=== PATIENT | female | born 1950 | race African-American/Black ===

== ENCOUNTER 2018-01-03 09:30 | Day surgery (SDC) | payer OTHER, MEDICARE ==
[2017-12-21 13:19] VITALS: BMI 29.0
--- NOTE | 2018-01-03 11:15 | HP ---
History & Physical Update - History History: No Change - Physical Physical: No Change - Assessment Assessment: No Change
[2018-01-03] MEDS ORDERED: ONDANSETRON 4 MG/2 ML VIAL IVPUSH PRN ×2 (11:32→13:24)
[2018-01-03] MEDS ORDERED: oxyCODONE HCL 5 MG TABLET PO PRN ×2 (11:32→13:24)
[2018-01-03] MEDS ORDERED: ACETAMINOPHEN 1000 MG/100 ML VIAL (NON FORMULARY) IVPB PRN (11:33)
[2018-01-03] MEDS ORDERED: LACTATED RINGERS SOLUTION 1,000 ML IV SCH (11:45)
[2018-01-03] MEDS ORDERED: IBUPROFEN 600 MG TABLET (FP) PO PRN (13:24)
[2018-01-03] MEDS ORDERED: IBUPROFEN 800 MG/8 ML IJ IVPB PRN (13:24)
[2018-01-03] MEDS ORDERED: ELECTROLYTE-148 SOLN 1,000 ML IV SCH (13:30)
[2018-01-03 14:59] VITALS: BP 139/73; PULSE 49; TEMP 97.6
--- NOTE | 2018-01-04 11:49 | PATH ---
Surgical Pathology Report Patient Name: AURELIO ISAACS [facility]. Rec. #: [id number] /Age/Gender: 1950 (Age: 67) / F Account: [id number] Location: [facility] SUR[facility]ICAL Taken: 01/03/2018 Received: 01/03/2018 Reported: 01/04/2018 Physicians: Silas Rothman M.D. Specimen(s) Received FIBROID, POLYP AND ENDOMETRIAL CURETTING Clinical History Postmenopausal bleeding Final Diagnosis FIBROID, POLYP, ENDOMETRIAL CURETTINGS, HYSTEROSCOPIC RESECTION OF FIBROID, POLYPECTOMY, DILATION AND CURETTAGE: FRAGMENTS OF ENDOMETRIAL POLYP, BUNDLES OF SMOOTH MUSCLE CONSISTENT WITH LEIOMYOMA, AND BENIGN CERVICAL TISSUE ADMIXED WITH MUCUS. Electronically Signed Kelsey Pugh M.D. Gross Description Received in formalin labeled "fibroid, polyp and endometrial curettings," is a 2.1 x 1.7 x 0.3 cm aggregate of ruano soft tissue fragments admixed with mucus. The specimen is entirely submitted in 2 cassettes. /01/03/2018 saudi01/03/2018
--- NOTE | 2018-01-29 14:57 | OP ---
DATE OF OPERATION: 01/03/2018 PREOPERATIVE DIAGNOSES: Menometrorrhagia, endometrial polyp. POSTOPERATIVE DIAGNOSES: Menometrorrhagia, endometrial polyp. PROCEDURE: Hysteroscopy, dilation and curettage, and polypectomy. SURGEON: Silas Rothman MD ANESTHESIA: General. ESTIMATED BLOOD LOSS: 20 mL. OPERATION: The patient was taken to the operating room and underwent adequate general anesthesia in dorsal lithotomy position. Examination under anesthesia revealed external genitalia to be normal. Vagina was normal. Cervix was clean. No gross lesions. Uterus was slightly prominent and adnexa, no masses were palpable. Then, with the weighted speculum in the vagina, the anterior lip of the cervix was grasped with a single-toothed tenaculum. The cervix was slightly dilated with Hegar dilators. The uterine cavity was sounded to 9 cm. Then, the hysteroscope was introduced. Visualization of the endocervical canal appeared to be normal. Endometrium was slightly irregular with an endometrial polyp noted at the fundal area. Then, the cervix was slightly more dilated, then the hysteroscope was introduced, and the endometrial polyp was removed and resected and then the endometrium was curetted. The patient tolerated the procedure well, left the OR in good condition. Tito [id number]
== END 2018-01-03 15:10 | disposition home or self-care (01) ==
LOC: JASU-SURG 09:30
PROVIDERS: ATTEND Obstetrics & Gynecology
PROC: 0UJD8ZZ Inspection of Uterus and Cervix, Via Natural or Artificial Opening Endoscopic (ICD-10-PCS; 2018-01-03)
PROC: 0UB97ZX Excision of Uterus, Via Natural or Artificial Opening, Diagnostic (ICD-10-PCS; principal; 2018-01-03 11:00)
PROC: 0UDB7ZX Extraction of Endometrium, Via Natural or Artificial Opening, Diagnostic (ICD-10-PCS; 2018-01-03 11:00)
DX: N92.1 Excessive and frequent menstruation with irregular cycle (principal); N84.0 Polyp of corpus uteri
CPT/HCPCS: 88305-TC; 94760

== ENCOUNTER 2020-05-08 11:17 | Inpatient (IN) | payer OTHER, MEDICARE ==
[2020-05-08] MEDS ORDERED: ACETAMINOPHEN 500 MG TABLET (FP) PO ONE (12:08)
[2020-05-08] MEDS ORDERED: SODIUM CHLORIDE 1,000 ML IV STA (12:14)
[2020-05-08] MEDS ORDERED: ACETAMINOPHEN 325 MG TABLET (FP) ONE (12:15)
[2020-05-08 12:41] LABS: BASO % 0.3 % (0-2.0); HEMATOCRIT 41.1 % (32.4-45.2); MCH 28.7 pg (25.7-33.7); MCHC 34.1 g/dl (32.0-36.0); MEAN CELL VOLUME 84.2 fl (80-96); MEAN PLT VOLUME 9.3 fl (7.5-11.1); MONO % 6.6 % (3.8-10.2); NEUT % 73.1 % (42.8-82.8); PLATELET COUNT 140 K/MM3 (134-434); RBC 4.88 M/mm3 (3.60-5.2); RDW 14.5 % (11.6-15.6); WHITE BLOOD COUNT 6.2 K/mm3 (4.0-10.0)
[2020-05-08 12:48] LABS: INR 1.11 (0.83-1.09); PROTHROMBIN TIME (PATIENT) 13.6 SEC (9.7-13.0)
[2020-05-08 12:50] LABS: ACTIVATED PTT 31.5 SECONDS (25.2-36.5)
[2020-05-08 12:58] LABS: CHLORIDE 92 mmol/L (98-107); POTASSIUM 3.9 mmol/L (3.5-5.1); SODIUM 128 mmol/L (136-145)
[2020-05-08 13:02] LABS: ALBUMIN 3.7 g/dl (3.4-5.0); ANION GAP 13 MMOL/L (8-16); BLOOD UREA NITROGEN 38.1 mg/dL (7-18); CALCIUM 8.7 mg/dL (8.5-10.1); CO2 22 mmol/L (21-32); GLUCOSE,RANDOM 148 mg/dL (74-106)
[2020-05-08 13:03] LABS: BILIRUBIN,DIRECT 0.2 mg/dL (0.0-0.2); SGPT/ALT 25 U/L (13-61)
[2020-05-08 13:05] LABS: CREATININE 2.3 mg/dL (0.55-1.3); SGOT/AST 74 U/L (15-37)
[2020-05-08 13:06] LABS: BILIRUBIN,TOTAL 0.5 mg/dL (0.2-1); LDH 400 U/L (84-246); TOT PROT 8.6 g/dl (6.4-8.2)
[2020-05-08 13:07] LABS: ALK PHOS 71 U/L (45-117)
[2020-05-08 13:10] LABS: N-TERMINAL BNP 141.6 pg/ml (5-125)
[2020-05-08] MEDS ORDERED: DEXAMETHASONE SOD PHOSPHATE 4 MG/1 ML VIAL IVPUSH ONE (14:21)
[2020-05-08] MEDS ORDERED: SODIUM CHLORIDE 1,000 ML IV SCH (15:00)
[2020-05-08] MEDS ORDERED: ALBUTEROL SO4 HFA INHALER IH PRN (15:20)
[2020-05-08] MEDS ORDERED: DEXAMETHASONE SOD PHOSPHATE 10 MG/1 ML VIAL ONE (15:33)
[2020-05-08] MEDS ORDERED: ATORVASTATIN CA 10 MG TABLET (FP) ONE (22:28)
[2020-05-08] MEDS ORDERED: HEPARIN NA (PORCINE) 5,000 UNITS/ML 1ML VIAL ONE (22:29)
[2020-05-08] MEDS: HEPARIN NA (PORCINE) 5,000 UNITS/ML 1ML VIAL SQ SCH (22:40)
[2020-05-08] MEDS: ATORVASTATIN CA 10 MG TABLET (FP) PO SCH (22:41)
[2020-05-09 00:58] LABS: URINE APPEARANCE Clear; URINE BILIRUBIN Negative (NEGATIVE); URINE COLOR Yellow; URINE GLUCOSE (UA) Negative (NEGATIVE); URINE KETONE Negative (NEGATIVE); URINE LEUK ESTERASE Negative (NEGATIVE); URINE NITRITE Negative (NEGATIVE); URINE PROTEIN 2+ (NEGATIVE); URINE UROBILINOGEN 0.2 mg/dL (0.2-1.0)
[2020-05-09] MEDS ORDERED: HEPARIN NA (PORCINE) 5,000 UNITS/ML 1ML VIAL ONE ×2 (06:13→14:01)
[2020-05-09] MEDS: HEPARIN NA (PORCINE) 5,000 UNITS/ML 1ML VIAL SQ SCH ×3 (06:23→21:24)
[2020-05-09 07:28] LABS: HEMATOCRIT 37.2 % (32.4-45.2); HEMOGLOBIN 12.9 GM/dL (10.7-15.3); MCH 29.3 pg (25.7-33.7); MCHC 34.8 g/dl (32.0-36.0); MEAN PLT VOLUME 9.3 fl (7.5-11.1); PLATELET COUNT 139 K/MM3 (134-434); RBC 4.42 M/mm3 (3.60-5.2); RDW 14.6 % (11.6-15.6)
[2020-05-09 07:40] LABS: POTASSIUM 3.7 mmol/L (3.5-5.1)
[2020-05-09 07:43] LABS: ALBUMIN 3.2 g/dl (3.4-5.0); CALCIUM 8.4 mg/dL (8.5-10.1)
[2020-05-09 07:44] LABS: BLOOD UREA NITROGEN 40.6 mg/dL (7-18)
[2020-05-09 07:47] LABS: BILIRUBIN,TOTAL 0.4 mg/dL (0.2-1); CREATININE 1.6 mg/dL (0.55-1.3); PHOSPHOROUS 3.8 mg/dL (2.5-4.9)
[2020-05-09] MEDS: SODIUM CHLORIDE 1,000 ML IV SCH (14:00)
[2020-05-09] MEDS: PANTOPRAZOLE SODIUM 40 MG VIAL IVPUSH SCH (16:10)
[2020-05-09] MEDS: DEXAMETHASONE SOD PHOSPHATE 10 MG/1 ML VIAL IVPUSH SCH (16:15)
[2020-05-09] MEDS ORDERED: PANTOPRAZOLE SODIUM 40 MG VIAL ONE (16:16)
[2020-05-09] MEDS ORDERED: DEXAMETHASONE SOD PHOSPHATE 10 MG/1 ML VIAL ONE (16:16)
[2020-05-09 20:11] LABS: HEMATOCRIT 38.9 % (32.4-45.2); HEMOGLOBIN 13.1 GM/dL (10.7-15.3); MCH 28.7 pg (25.7-33.7); MCHC 33.8 g/dl (32.0-36.0); MEAN CELL VOLUME 84.9 fl (80-96); MEAN PLT VOLUME 9.4 fl (7.5-11.1); PLATELET COUNT 158 K/MM3 (134-434); RBC 4.58 M/mm3 (3.60-5.2); RDW 14.5 % (11.6-15.6); WHITE BLOOD COUNT 8.8 K/mm3 (4.0-10.0)
[2020-05-09] MEDS: ATORVASTATIN CA 10 MG TABLET (FP) PO SCH (21:24)
[2020-05-09 22:46] VITALS: BMI 29.1
[2020-05-10] MEDS: HEPARIN NA (PORCINE) 5,000 UNITS/ML 1ML VIAL SQ SCH ×3 (06:08→21:34)
[2020-05-10 07:18] LABS: BASO % 0.2 % (0-2.0); HEMATOCRIT 38.7 % (32.4-45.2); HEMOGLOBIN 13.2 GM/dL (10.7-15.3); LYMPH % 18.7 % (8-40); MCH 28.9 pg (25.7-33.7); MEAN CELL VOLUME 84.9 fl (80-96); MEAN PLT VOLUME 9.6 fl (7.5-11.1); MONO % 6.7 % (3.8-10.2); NEUT % 74.4 % (42.8-82.8); PLATELET COUNT 153 K/MM3 (134-434); RBC 4.56 M/mm3 (3.60-5.2); RDW 14.2 % (11.6-15.6); WHITE BLOOD COUNT 9.6 K/mm3 (4.0-10.0)
[2020-05-10 08:11] LABS: MAGNESIUM 2.1 mg/dL (1.8-2.4)
[2020-05-10 08:14] LABS: PHOSPHOROUS 3.9 mg/dL (2.5-4.9)
[2020-05-10] MEDS ORDERED: PT OWN MED DRAWER 7, Y5N ONE (09:19)
[2020-05-10] MEDS: DEXAMETHASONE SOD PHOSPHATE 10 MG/1 ML VIAL IVPUSH SCH (09:21)
[2020-05-10] MEDS: PANTOPRAZOLE SODIUM 40 MG VIAL IVPUSH SCH (09:21)
[2020-05-10] MEDS: ASCORBIC ACID 500 MG TABLET (FP) PO SCH ×2 (09:22→21:34)
[2020-05-10] MEDS: CHOLECALCIFEROL (VIT D3) 1,000 UNIT (25 MCG) TABLET PO SCH (09:22)
[2020-05-10 09:51] LABS: ALBUMIN 3.2 g/dl (3.4-5.0)
[2020-05-10 09:59] LABS: CALCIUM 8.9 mg/dL (8.5-10.1)
[2020-05-10 10:00] LABS: BLOOD UREA NITROGEN 35.5 mg/dL (7-18)
[2020-05-10] MEDS ORDERED: ZINC SULFATE 220 MG TABLET PO SCH (10:00)
[2020-05-10] MEDS ORDERED: REMDESIVIR 200 MG in SODIUM CHLORIDE 210 ML IVPB ONE (10:00)
[2020-05-10 10:04] LABS: BILIRUBIN,TOTAL 0.5 mg/dL (0.2-1); CREATININE 1.3 mg/dL (0.55-1.3); TOT PROT 7.9 g/dl (6.4-8.2)
[2020-05-10] MEDS: SODIUM CHLORIDE 1,000 ML IV SCH (13:08)
[2020-05-10] MEDS: FAMOTIDINE 20 MG/50 ML IVPB 20 MG/50 ML MG IVPB SCH (21:34)
[2020-05-10] MEDS: ZINC SULFATE 220 MG CAPSULE (FP) PO SCH (21:34)
[2020-05-10] MEDS: ATORVASTATIN CA 10 MG TABLET (FP) PO SCH (21:34)
[2020-05-11] MEDS: HEPARIN NA (PORCINE) 5,000 UNITS/ML 1ML VIAL SQ SCH ×3 (06:43→21:05)
[2020-05-11 07:27] LABS: BASO % 0.2 % (0-2.0); HEMATOCRIT 38.3 % (32.4-45.2); LYMPH % 16.3 % (8-40); MCH 29.1 pg (25.7-33.7); MEAN CELL VOLUME 85.5 fl (80-96); MEAN PLT VOLUME 9.7 fl (7.5-11.1); MONO % 4.1 % (3.8-10.2); NEUT % 79.4 % (42.8-82.8); PLATELET COUNT 185 K/MM3 (134-434); RBC 4.48 M/mm3 (3.60-5.2); RDW 14.7 % (11.6-15.6); WHITE BLOOD COUNT 14.1 K/mm3 (4.0-10.0)
[2020-05-11 07:29] LABS: POTASSIUM 3.8 mmol/L (3.5-5.1)
[2020-05-11 07:32] LABS: CALCIUM 8.4 mg/dL (8.5-10.1)
[2020-05-11 07:33] LABS: BLOOD UREA NITROGEN 28.2 mg/dL (7-18); MAGNESIUM 1.8 mg/dL (1.8-2.4)
[2020-05-11 07:36] LABS: CREATININE 1.2 mg/dL (0.55-1.3)
[2020-05-11 07:38] LABS: BILIRUBIN,TOTAL 0.5 mg/dL (0.2-1); TOT PROT 7.8 g/dl (6.4-8.2)
[2020-05-11 08:55] LABS: ANISOCYTOSIS 1+; PLATELET ESTIMATE NORMAL
[2020-05-11] MEDS: CHOLECALCIFEROL (VIT D3) 1,000 UNIT (25 MCG) TABLET PO SCH (09:22)
[2020-05-11] MEDS: ZINC SULFATE 220 MG CAPSULE (FP) PO SCH ×2 (09:22→21:05)
[2020-05-11] MEDS: FAMOTIDINE 20 MG/50 ML IVPB 20 MG/50 ML MG IVPB SCH ×2 (09:22→21:05)
[2020-05-11] MEDS: ASCORBIC ACID 500 MG TABLET (FP) PO SCH ×2 (09:22→21:05)
[2020-05-11] MEDS: DEXAMETHASONE SOD PHOSPHATE 10 MG/1 ML VIAL IVPUSH SCH (09:23)
[2020-05-11] MEDS: REMDESIVIR 100 MG in SODIUM CHLORIDE 230 ML IVPB SCH (10:01)
[2020-05-11] MEDS ORDERED: PT OWN MED DRAWER 7, Y5N ONE (11:41)
[2020-05-11] MEDS: SODIUM CHLORIDE 1,000 ML IV SCH (13:47)
[2020-05-11] MEDS: ATORVASTATIN CA 10 MG TABLET (FP) PO SCH (21:05)
[2020-05-12] MEDS: SODIUM CHLORIDE 1,000 ML IV SCH ×2 (03:45→13:15)
[2020-05-12] MEDS: HEPARIN NA (PORCINE) 5,000 UNITS/ML 1ML VIAL SQ SCH ×3 (05:38→22:22)
[2020-05-12 08:12] LABS: POTASSIUM 3.7 mmol/L (3.5-5.1)
[2020-05-12 08:17] LABS: ALBUMIN 2.9 g/dl (3.4-5.0); BASO % 0.2 % (0-2.0); CALCIUM 8.5 mg/dL (8.5-10.1); HEMATOCRIT 38.8 % (32.4-45.2); MCH 28.9 pg (25.7-33.7); MCHC 33.7 g/dl (32.0-36.0); MEAN CELL VOLUME 85.9 fl (80-96); MEAN PLT VOLUME 9.3 fl (7.5-11.1); MONO % 4.9 % (3.8-10.2); NEUT % 76.9 % (42.8-82.8); PLATELET COUNT 229 K/MM3 (134-434); RBC 4.51 M/mm3 (3.60-5.2); RDW 14.8 % (11.6-15.6); WHITE BLOOD COUNT 11.4 K/mm3 (4.0-10.0)
[2020-05-12 08:18] LABS: BLOOD UREA NITROGEN 29.4 mg/dL (7-18); MAGNESIUM 1.8 mg/dL (1.8-2.4)
[2020-05-12 08:20] LABS: BILIRUBIN,TOTAL 0.6 mg/dL (0.2-1)
[2020-05-12 08:21] LABS: CREATININE 1.1 mg/dL (0.55-1.3); TOT PROT 7.5 g/dl (6.4-8.2)
[2020-05-12] MEDS ORDERED: PT OWN MED DRAWER 7, Y5N ONE (08:31)
[2020-05-12] MEDS: DEXAMETHASONE SOD PHOSPHATE 10 MG/1 ML VIAL IVPUSH SCH (09:51)
[2020-05-12] MEDS: ZINC SULFATE 220 MG CAPSULE (FP) PO SCH ×2 (09:51→22:23)
[2020-05-12] MEDS: CHOLECALCIFEROL (VIT D3) 1,000 UNIT (25 MCG) TABLET PO SCH (09:51)
[2020-05-12] MEDS: FAMOTIDINE 20 MG/50 ML IVPB 20 MG/50 ML MG IVPB SCH ×2 (09:52→22:22)
[2020-05-12] MEDS: ASCORBIC ACID 500 MG TABLET (FP) PO SCH ×2 (09:52→22:23)
[2020-05-12] MEDS: REMDESIVIR 100 MG in SODIUM CHLORIDE 230 ML IVPB SCH (10:36)
[2020-05-12 12:56] LABS: ANISOCYTOSIS 0; MACROCYTOSIS 0; PLATELET ESTIMATE NORMAL
[2020-05-12] MEDS: amLODIPine BESYLATE 5 MG TABLET (FP) PO SCH (17:20)
[2020-05-12] MEDS: ATORVASTATIN CA 10 MG TABLET (FP) PO SCH (22:23)
[2020-05-13] MEDS: HEPARIN NA (PORCINE) 5,000 UNITS/ML 1ML VIAL SQ SCH (06:15)
[2020-05-13 07:57] LABS: BASO % 0.3 % (0-2.0); HEMATOCRIT 38.9 % (32.4-45.2); HEMOGLOBIN 13.3 GM/dL (10.7-15.3); LYMPH % 25.1 % (8-40); MCH 29.1 pg (25.7-33.7); MCHC 34.2 g/dl (32.0-36.0); MEAN CELL VOLUME 85.1 fl (80-96); MEAN PLT VOLUME 8.9 fl (7.5-11.1); MONO % 6.2 % (3.8-10.2); NEUT % 68.4 % (42.8-82.8); PLATELET COUNT 285 K/MM3 (134-434); RBC 4.57 M/mm3 (3.60-5.2); RDW 14.5 % (11.6-15.6); WHITE BLOOD COUNT 10.2 K/mm3 (4.0-10.0)
[2020-05-13 08:13] LABS: POTASSIUM 3.9 mmol/L (3.5-5.1)
[2020-05-13 08:43] LABS: CALCIUM 8.2 mg/dL (8.5-10.1)
[2020-05-13 08:44] LABS: ALBUMIN 2.7 g/dl (3.4-5.0); BLOOD UREA NITROGEN 23.7 mg/dL (7-18); MAGNESIUM 1.7 mg/dL (1.8-2.4)
[2020-05-13 08:49] LABS: BILIRUBIN,TOTAL 0.6 mg/dL (0.2-1); TOT PROT 7.1 g/dl (6.4-8.2)
[2020-05-13] MEDS: amLODIPine BESYLATE 5 MG TABLET (FP) PO SCH (09:20)
[2020-05-13] MEDS: CHOLECALCIFEROL (VIT D3) 1,000 UNIT (25 MCG) TABLET PO SCH (09:20)
[2020-05-13] MEDS: FAMOTIDINE 20 MG/50 ML IVPB 20 MG/50 ML MG IVPB SCH ×2 (09:20→21:39)
[2020-05-13] MEDS: DEXAMETHASONE SOD PHOSPHATE 10 MG/1 ML VIAL IVPUSH SCH (09:20)
[2020-05-13] MEDS: ZINC SULFATE 220 MG CAPSULE (FP) PO SCH ×2 (09:20→21:40)
[2020-05-13] MEDS: ASCORBIC ACID 500 MG TABLET (FP) PO SCH ×2 (09:20→21:40)
[2020-05-13] MEDS ORDERED: PT OWN MED DRAWER 7, Y5N ONE (09:27)
[2020-05-13] MEDS: REMDESIVIR 100 MG in SODIUM CHLORIDE 230 ML IVPB SCH (09:43)
[2020-05-13 12:42] LABS: ANISOCYTOSIS 0; MACROCYTOSIS 0; PLATELET ESTIMATE NORMAL
[2020-05-13] MEDS ORDERED: MAGNESIUM OXIDE 400 MG TABLET (FP) PO ONE (18:33)
[2020-05-13] MEDS: APIXABAN 5 MG TABLET PO SCH (21:40)
[2020-05-13] MEDS: ATORVASTATIN CA 10 MG TABLET (FP) PO SCH (21:40)
[2020-05-14 07:22] LABS: BASO % 0.3 % (0-2.0); HEMATOCRIT 40.9 % (32.4-45.2); HEMOGLOBIN 13.6 GM/dL (10.7-15.3); LYMPH % 26.5 % (8-40); MCH 28.7 pg (25.7-33.7); MCHC 33.3 g/dl (32.0-36.0); MEAN CELL VOLUME 86.1 fl (80-96); MEAN PLT VOLUME 8.9 fl (7.5-11.1); MONO % 5.8 % (3.8-10.2); NEUT % 67.4 % (42.8-82.8); PLATELET COUNT 314 K/MM3 (134-434); RBC 4.76 M/mm3 (3.60-5.2); RDW 14.5 % (11.6-15.6); WHITE BLOOD COUNT 9.8 K/mm3 (4.0-10.0)
[2020-05-14 07:55] LABS: CALCIUM 8.5 mg/dL (8.5-10.1)
[2020-05-14 07:56] LABS: ALBUMIN 2.8 g/dl (3.4-5.0); BLOOD UREA NITROGEN 20.2 mg/dL (7-18); MAGNESIUM 1.7 mg/dL (1.8-2.4)
[2020-05-14 07:58] LABS: BILIRUBIN,TOTAL 0.5 mg/dL (0.2-1)
[2020-05-14 08:00] LABS: TOT PROT 7.2 g/dl (6.4-8.2)
[2020-05-14] MEDS: DEXAMETHASONE SOD PHOSPHATE 10 MG/1 ML VIAL IVPUSH SCH (09:00)
[2020-05-14] MEDS: CHOLECALCIFEROL (VIT D3) 1,000 UNIT (25 MCG) TABLET PO SCH (09:01)
[2020-05-14] MEDS: FAMOTIDINE 20 MG/50 ML IVPB 20 MG/50 ML MG IVPB SCH (09:01)
[2020-05-14] MEDS: ASCORBIC ACID 500 MG TABLET (FP) PO SCH (09:01)
[2020-05-14] MEDS: ZINC SULFATE 220 MG CAPSULE (FP) PO SCH (09:01)
[2020-05-14] MEDS: amLODIPine BESYLATE 5 MG TABLET (FP) PO SCH (09:01)
[2020-05-14] MEDS: APIXABAN 5 MG TABLET PO SCH (09:01)
[2020-05-14] MEDS: REMDESIVIR 100 MG in SODIUM CHLORIDE 230 ML IVPB SCH (10:46)
[2020-05-14 11:49] LABS: ANISOCYTOSIS 0; MACROCYTOSIS 0; PLATELET ESTIMATE NORMAL
[2020-05-14 19:42] VITALS: BP 137/62; PULSE 90; TEMP 98
== END 2020-05-14 22:13 | disposition home or self-care (01) | DRG 177 ==
LOC: JER 11:17 → JERBED 14:45 → J4S 05-09 20:31
PROVIDERS: ADMIT Internal Medicine; ATTEND Nurse Practitioner Family
PROC: XW033E5 Introduction of Remdesivir Anti-infective into Peripheral Vein, Percutaneous Approach, New Technology Group 5 (ICD-10-PCS; principal; 2020-05-10)
PROC: XW13325 Transfusion of Convalescent Plasma (Nonautologous) into Peripheral Vein, Percutaneous Approach, New Technology Group 5 (ICD-10-PCS; 2020-05-10)
DX: U07.1 COVID-19 (principal); J12.82 Pneumonia due to coronavirus disease 2019; J96.01 Acute respiratory failure with hypoxia; N17.9 Acute kidney failure, unspecified; E87.1 Hypo-osmolality and hyponatremia; E87.2 Acidosis; I10 Essential (primary) hypertension; E78.5 Hyperlipidemia, unspecified; J45.909 Unspecified asthma, uncomplicated; R55 Syncope and collapse; E86.0 Dehydration; D72.829 Elevated white blood cell count, unspecified
CPT/HCPCS: 36415; 36430; 71045-TC-FY; 80053; 81003; 82248; 82550; 82553; 82728; 83605; 83615; 83735; 83880; 84100; 84484; 84703; 85025; 85027; 85379; 85610; 85730; 86140; 86850; 86900; 86901; 87040; 87086; 87426; 87804; 93005; 93010; 99285-25; C9399; J1100; J1644; P9017